=== PATIENT | male | born 1980 | race Two or more races ===

== ENCOUNTER 2018-05-15 21:07 | Emergency (ER) | payer SELFPAY ==
[2018-05-15] MEDS ORDERED: Sodium Chloride 0.9% 1,000 ML IV ONE (21:11)
[2018-05-15] MEDS ORDERED: Ondansetron 4 MG/2 ML SDV IVPUSH ONE (21:11)
[2018-05-15] MEDS ORDERED: Ondansetron 4 MG/2 ML SDV ONE (21:11)
[2018-05-15] MEDS ORDERED: Morphine 2 MG/ML Syringe IVPUSH ONE (21:11)
[2018-05-15] MEDS ORDERED: Ketorolac 30 MG/ML SDV IVPUSH ONE (21:11)
[2018-05-15] MEDS ORDERED: Ketorolac 30 MG/ML SDV ONE (21:12)
--- NOTE | 2018-05-15 21:27 | EDM.PDOC ---
<Dami Jeffers - Last Filed: 05/15/18 23:50> ED HPI GENERAL MEDICAL PROBLEM - General Chief Complaint: Back Pain or Injury Stated Complaint: PAIN IN THE ABDIMON Time Seen by Provider: 05/15/18 21:12 right lower back Pain Score (Numeric/FACES): 4 - Related Data Allergies Allergy/AdvReac Type Severity Reaction Status Date / Time No Known Allergies Allergy Verified 05/15/18 21:32 Home Meds: Home Meds . [No Known Home Meds] 05/15/18 [History] ED ROS GENERAL - Review of Systems Review Of Systems: ROS reveals no pertinent complaints other than HPI. ED EXAM,LOWER BACK PAIN/INJURY - Physical Exam Exam: See Below (See dictation) Course - Vital Signs Text/Narrative:: Patient's emergency department course has been unremarkable CT abdomen and pelvis demonstrated 9 x 6 mm distal right ureteral obstructive stone I discussed case with urology on-call who will see patient in a.m. at 7:30 in same day surgery for definitive treatment patient will be nothing by mouth after midnight patient was given Levaquin prior to arrival IV as well as Flomax by mouth he was prescribed hydrocodone Flomax and Cipro upon discharge patient understands and agrees Last Recorded V/S: Last Vital Signs Temp 97.5 F 05/16/18 00:40 Pulse 82 05/16/18 00:40 Resp 18 05/16/18 00:40 BP 127/75 05/16/18 00:40 Pulse Ox 98 05/16/18 00:40 - Orders/Labs/Meds Orders: Active Orders 24 hr Category Date Time Status UA W/MICROSCOPIC [URIN] Stat Lab 05/15/18 22:50 Ordered Labs: Laboratory Tests 05/15/18 05/15/18 05/15/18 Range/Units 21:15 21:15 22:50 WBC 14.16 H (4.0-11.0) K/uL RBC 5.03 (4.50-5.90) M/uL Hgb 15.3 (13.0-17.0) g/dL Hct 44.5 (38.0-50.0) % MCV 88.5 (80.0-98.0) fL MCH 30.4 (27.0-32.0) pg MCHC 34.4 (31.0-37.0) g/dL RDW Std Deviation 43.9 (28.0-62.0) fl RDW Coeff of Robby 14 (11.0-15.0) % Plt Count 271 (150-400) K/uL MPV 10.80 (7.40-12.00) fL Neut % (Auto) 57.2 (48.0-80.0) % Lymph % (Auto) 31.9 (16.0-40.0) % Hendry % (Auto) 8.0 (0.0-15.0) % Eos % (Auto) 2.5 (0.0-7.0) % Baso % (Auto) 0.4 (0.0-1.5) % Neut # (Auto) 8.1 H (1.4-5.7) K/uL Lymph # (Auto) 4.5 H (0.6-2.4) K/uL Hendry # (Auto) 1.1 H (0.0-0.8) K/uL Eos # (Auto) 0.4 (0.0-0.7) K/uL Baso # (Auto) 0.1 (0.0-0.1) K/uL Nucleated RBC % 0.0 /100WBC Nucleated RBCs # 0 K/uL Sodium 139 (136-148) mmol/L Potassium 3.9 (3.5-5.1) mmol/L Chloride 105 (98-107) mmol/L Carbon Dioxide 25.7 (21.0-32.0) mmol/L BUN 15 (7.0-18.0) mg/dL Creatinine 1.2 (0.8-1.3) mg/dL Est Cr Clr Drug Dosing 78.80 mL/min Estimated GFR (MDRD) > 60.0 ml/min Glucose 99 (74-106) mg/dL Calcium 8.9 (8.5-10.1) mg/dL Total Bilirubin 0.5 (0.2-1.0) mg/dL AST 24 (15-37) IU/L ALT 41 (14-63) IU/L Alkaline Phosphatase 91 (46-116) U/L Total Protein 8.4 H (6.4-8.2) g/dL Albumin 4.3 (3.4-5.0) g/dL Globulin 4.1 H (2.0-3.5) g/dL Albumin/Globulin Ratio 1.1 L (1.3-2.8) Urine Color YELLOW Urine Appearance CLEAR Urine pH 6.0 (5.0-8.0) Ur Specific [place] >= 1.030 (1.001-1.035) Urine Protein NEGATIVE (NEGATIVE) mg/dL Urine Glucose (UA) NEGATIVE (NEGATIVE) mg/dL Urine Ketones NEGATIVE (NEGATIVE) mg/dL Urine Occult Blood LARGE H (NEGATIVE) Urine Nitrite NEGATIVE (NEGATIVE) Urine Bilirubin NEGATIVE (NEGATIVE) Urine Urobilinogen 0.2 (<2.0) EU/dL Ur Leukocyte Esterase NEGATIVE (NEGATIVE) Urine RBC 3-7 (0-2/HPF) Urine WBC 2-4 (0-5/HPF) Ur Epithelial Cells FEW (NONE-FEW) Urine Bacteria FEW (NEGATIVE) Urine Mucus LIGHT (NONE-MOD) Meds: Medications Discontinued Medications Generic Name Dose Route Start Last Admin Trade Name Freq PRN Reason Stop Dose Admin Sodium Chloride 1,000 mls @ 999 mls/hr 05/15/18 21:11 05/15/18 21:16 Normal Saline IV 05/15/18 22:11 999 mls/hr STAT ONE Administration Levofloxacin/Dextrose 750 mg/ 150 mls @ 100 mls/hr 05/15/18 22:47 05/15/18 22 :59 Premix IV 05/16/18 00:16 100 mls/hr ONETIME ONE Administration Ketorolac Tromethamine 30 mg 05/15/18 21:11 05/15/18 21:17 Toradol IVPUSH 05/15/18 21:12 30 mg ONETIME ONE Administration Ketorolac Tromethamine Confirm 05/15/18 21:12 05/15/18 21:17 Toradol Administered 05/15/18 21:13 Not Given Dose 30 mg .ROUTE .STK-MED ONE Morphine Sulfate 4 mg 05/15/18 21:11 05/16/18 00:59 Morphine IVPUSH 05/15/18 21:12 Not Given ONETIME ONE Ondansetron HCl 4 mg 05/15/18 21:11 05/15/18 21:17 Zofran IVPUSH 05/15/18 21:12 4 mg ONETIME ONE Administration Ondansetron HCl Confirm 05/15/18 21:11 05/15/18 21:17 Zofran Administered 05/15/18 21:12 Not Given Dose 4 mg .ROUTE .STK-MED ONE Tamsulosin HCl 0.4 mg 05/15/18 22:46 05/15/18 23:02 Flomax PO 05/15/18 22:47 0.4 mg ONETIME ONE Administration Departure - Departure Time of Disposition: 23:51 Disposition: Home, Self-Care 01 Condition: Good Clinical Impression: Ureterolithiasis - Discharge Information Instructions: Kidney Stones, [id number] Referrals: PCP,None [Primary Care Provider] - Forms: ED Department Discharge Additional Instructions: The following information is given to patients seen in the emergency department who are being discharged to home. This information is to outline your options for follow-up care. We provide all patients seen in our emergency department with a follow-up referral. The need for follow-up, as well as the timing and circumstances, are variable depending upon the specifics of your emergency department visit. If you don't have a primary care physician on staff, we will provide you with a referral. We always advise you to contact your personal physician following an emergency department visit to inform them of the circumstance of the visit and for follow-up with them and/or the need for any referrals to a consulting specialist. The emergency department will also refer you to a specialist when appropriate. This referral assures that you have the opportunity for followup care with a specialist. All of these measure are taken in an effort to provide you with optimal care, which includes your followup. Under all circumstances we always encourage you to contact your private physician who remains a resource for coordinating your care. When calling for followup care, please make the office aware that this follow-up is from your recent emergency room visit. If for any reason you are refused follow-up, please contact the [facility] emergency department at and asked to speak to the emergency department charge nurse. Nothing by mouth after midnight return to same day surgery 7:30 AM as discussed for follow-up with Dr. Daigle Care Plan Goals: NPO post midnight ff-up with Dr. Daigle in the morning - My Orders Last 24 Hours: My Active Orders 05/15/18 22:50 UA W/MICROSCOPIC [URIN] Stat - Assessment/Plan Last 24 Hours: My Active Orders 05/15/18 22:50 UA W/MICROSCOPIC [URIN] Stat <Neil Astudillo E - Last Filed: 05/16/18 10:17> ED HPI GENERAL MEDICAL PROBLEM - History of Present Illness INITIAL COMMENTS - FREE TEXT/NARRATIVE: HISTORY AND PHYSICAL: History of present illness: Patient is a 38-year-old male who presents to the emergency room with complaints of right low back pain that radiates to the right lower quadrant. He states that this pain start approximately 2 hours prior to arrival. He states he has had kidney stones in the past and this discomfort feels similar. He states the pain started while at work and he was not doing anything in particular, no heavy lifting or straining. Pain is associated with nausea and vomiting. He denies any fever, chills, chest pain, shortness of breath or cough. Denies any vomiting, diarrhea, constipation, dysuria, testicular pain or swelling. Denies any recent injury, trauma or falls. Review of systems: As per history of present illness and below otherwise all systems reviewed and negative. Past medical history: As per history of present illness and as reviewed below otherwise noncontributory. Surgical history: As per history of present illness and as reviewed below otherwise noncontributory. Social history: No reported history of drug or alcohol abuse. Family history: As per history of present illness and as reviewed below otherwise noncontributory. Physical exam: General: Well-developed and well-nourished 38-year-old male. Alert and oriented. Nontoxic appearing and in no acute distress. HEENT: Atraumatic, normocephalic, pupils equal and reactive bilaterally, negative for conjunctival pallor or scleral icterus, mucous membranes moist, throat clear, neck supple, nontender, trachea midline. No drooling or trismus noted. No meningeal signs Lungs: Clear to auscultation, breath sounds equal bilaterally, chest nontender. Heart: S1S2, regular rate and rhythm without overt murmur Abdomen: Soft, nondistended, obese, tenderness right lower quadrant. Negative for masses or hepatosplenomegaly. Right sided costovertebral tenderness. Pelvis: Stable nontender. Genitourinary: Deferred. Rectal: Deferred. Skin: Intact, warm, dry. No lesions or rashes noted. Extremities: Atraumatic, negative for cords or calf pain. Neurovascular unremarkable. Neuro: Awake, alert, oriented. Cranial nerves II through XII unremarkable. Cerebellum unremarkable. Motor and sensory unremarkable throughout. Exam nonfocal. Notes: Patient states after the Toradol his pain went from a 10/10 to a 1/10. Waiting for lab results and CT of the abdomen and pelvis at this time. CT results are pending. Dr. Leal that has agreed to accept this patient and assume care. He will review the CT results and dispition the patient accordingly. *Update Note: Mild right hydronephrosis and hydroureter produced by 9 x 5 mm right distal ureteral stone millimeter nonobstructing stone in the right upper pole of kidney. No sign of any additional renal stones. Tiny fat containing right inguinal hernia. Diagnostics: CBC, CMP, UA, CT abd/pelvis Therapeutics: IV fluids, Zofran, Toradol, Morphine Impression: Kidney Stone Plan: Per Dr Jeffers Definitive disposition and diagnosis as appropriate pending reevaluation and review of above. ED ROS GENERAL - Review of Systems Review Of Systems: ROS reveals no pertinent complaints other than HPI. ED EXAM,LOWER BACK PAIN/INJURY - Physical Exam Exam: See Below Course - Vital Signs Last Recorded V/S: Last Vital Signs Temp 97.5 F 05/16/18 00:40 Pulse 82 05/16/18 00:40 Resp 18 05/16/18 00:40 BP 127/75 05/16/18 00:40 Pulse Ox 98 05/16/18 00:40 - Orders/Labs/Meds Labs: Laboratory Tests 05/15/18 05/15/18 05/15/18 Range/Units 21:15 21:15 22:50 WBC 14.16 H (4.0-11.0) K/uL RBC 5.03 (4.50-5.90) M/uL Hgb 15.3 (13.0-17.0) g/dL Hct 44.5 (38.0-50.0) % MCV 88.5 (80.0-98.0) fL MCH 30.4 (27.0-32.0) pg MCHC 34.4 (31.0-37.0) g/dL RDW Std Deviation 43.9 (28.0-62.0) fl RDW Coeff of Robby 14 (11.0-15.0) % Plt Count 271 (150-400) K/uL MPV 10.80 (7.40-12.00) fL Neut % (Auto) 57.2 (48.0-80.0) % Lymph % (Auto) 31.9 (16.0-40.0) % Hend[place] % (Auto) 8.0 (0.0-15.0) % Eos % (Auto) 2.5 (0.0-7.0) % Baso % (Auto) 0.4 (0.0-1.5) % Neut # (Auto) 8.1 H (1.4-5.7) K/uL Lymph # (Auto) 4.5 H (0.6-2.4) K/uL [place] # (Auto) 1.1 H (0.0-0.8) K/uL Eos # (Auto) 0.4 (0.0-0.7) K/uL Baso # (Auto) 0.1 (0.0-0.1) K/uL Nucleated RBC % 0.0 /100WBC Nucleated RBCs # 0 K/uL Sodium 139 (136-148) mmol/L Potassium 3.9 (3.5-5.1) mmol/L Chloride 105 (98-107) mmol/L Carbon Dioxide 25.7 (21.0-32.0) mmol/L BUN 15 (7.0-18.0) mg/dL Creatinine 1.2 (0.8-1.3) mg/dL Est Cr Clr Drug Dosing 78.80 mL/min Estimated GFR (MDRD) > 60.0 ml/min Glucose 99 (74-106) mg/dL Calcium 8.9 (8.5-10.1) mg/dL Total Bilirubin 0.5 (0.2-1.0) mg/dL AST 24 (15-37) IU/L ALT 41 (14-63) IU/L Alkaline Phosphatase 91 (46-116) U/L Total Protein 8.4 H (6.4-8.2) g/dL Albumin 4.3 (3.4-5.0) g/dL Globulin 4.1 H (2.0-3.5) g/dL Albumin/Globulin Ratio 1.1 L (1.3-2.8) Urine Color YELLOW Urine Appearance CLEAR Urine pH 6.0 (5.0-8.0) Ur Specific [place] >= 1.030 (1.001-1.035) Urine Protein NEGATIVE (NEGATIVE) mg/dL Urine Glucose (UA) NEGATIVE (NEGATIVE) mg/dL Urine Ketones NEGATIVE (NEGATIVE) mg/dL Urine Occult Blood LARGE H (NEGATIVE) Urine Nitrite NEGATIVE (NEGATIVE) Urine Bilirubin NEGATIVE (NEGATIVE) Urine Urobilinogen 0.2 (<2.0) EU/dL Ur Leukocyte Esterase NEGATIVE (NEGATIVE) Urine RBC 3-7 (0-2/HPF) Urine WBC 2-4 (0-5/HPF) Ur Epithelial Cells FEW (NONE-FEW) Urine Bacteria FEW (NEGATIVE) Urine Mucus LIGHT (NONE-MOD) Departure - Departure Condition: Good
[2018-05-15 21:44] LABS: CHLORIDE,CL 105 mmol/L (98-107); SODIUM,NA 139 mmol/L (136-148)
[2018-05-15] MEDS ORDERED: Tamsulosin 0.4 MG Cap.ER PO ONE (22:46)
[2018-05-15] MEDS ORDERED: Levofloxacin/Dextrose 5%-Water 750 MG in Premix Bag 1 BAG IV ONE (22:47)
--- NOTE | 2018-05-16 09:44 | CT ---
EXAM DATE: 05/15/18 PATIENT'S AGE: 38 Patient: JESUS MACIAS Facility: [place], [place] Site . Site : [id number] Study: CT Abdomen/Pelvis [id number]/[id number] 9:59:39 PM Ordering Physician: Doctor Avalos Final Report: INDICATION: Right low back and flank pain. COMPARISON: None available TECHNIQUE: CT examination of the abdomen and pelvis was performed without contrast enhancement using 3 mm thick axial sections from the lung bases through the pubic symphysis. Oral contrast was not administered. Please note that all CT scans at this facility use dose modulation, iterative reconstruction, and/or weight-based dosing when appropriate to reduce radiation dose to as low as reasonably achievable. FINDINGS: In the abdomen, the unenhanced liver, spleen, pancreas, and adrenals are normal in appearance. There is mild right hydronephrosis and mild right hydroureter extending to a 9 x 5 millimeter calculus located in the right distal ureter approximately 3 centimeters from the UVJ. There is a tiny 2 millimeter nonobstructing in the upper pole of the right kidney. There is no sign of any renal or ureteral calculi on the left. There is no sign of hydronephrosis on the left. There is no sign of any renal mass or cyst in either kidney. The gallbladder is normal in appearance. The abdominal aorta is normal in caliber with no sign of dilatation. There is no sign of retroperitoneal mass or adenopathy. The stomach, loops of small bowel, and colon in the abdomen are normal in appearance. In the pelvis, the appendix is normal in appearance with no sign of inflammatory process.. The loops of small bowel and colon in the pelvis are normal in appearance. The prostate is normal in appearance. The urinary bladder is normal in appearance. There is no sign of pelvic or inguinal mass or adenopathy. There is a tiny fat containing right inguinal hernia. The lung bases are clear. The osseous structures are normal in appearance for the patient`s age. IMPRESSION: MILD RIGHT HYDRONEPHROSIS AND HYDROURETER PRODUCED BY A 9 X 5 MILLIMETER RIGHT DISTAL URETERAL CALCULUS. CT OF THE ABDOMEN SHOWS A 2 MILLIMETER NONOBSTRUCTING CALCULUS IN THE UPPER POLE OF THE RIGHT KIDNEY. NO SIGN OF ANY ADDITIONAL RENAL OR URETERAL CALCULI. CT OF THE PELVIS SHOWS A TINY FAT CONTAINING RIGHT INGUINAL HERNIA. Please note that all CT scans at this facility use dose modulation, iterative reconstruction, and/or weight-based dosing when appropriate to reduce radiation dose to as low as reasonably achievable. Dictated by Tristan Zamudio MD @ May 15 2018 10:21PM (Electronic Signature) Report Signed by Proxy. MTDD
== END 2018-05-16 00:40 | disposition home or self-care (01) ==
LOC: MW.ED 21:07
DX: N13.2 Hydronephrosis with renal and ureteral calculous obstruction (principal)
CPT/HCPCS: 74176; 80053; 81001; 85025; 96361; 96365; 96366; 96375; 99284; A9270; J1885; J1956; J2405; J7040